=== PATIENT | male | born 1980 | race Caucasian/White ===

== ENCOUNTER 2016-06-29 15:00 | Emergency (ER) ==
[2016-06-29 15:10] VITALS: BP 153/96; TEMP 98.6; BMI 26.5
[2016-06-29] MEDS ORDERED: SODIUM CHLORIDE 1,000 ML IV STA (15:48)
[2016-06-29] MEDS ORDERED: ZOFRAN 4 MG/2 ML IVP STA (15:49)
--- NOTE | 2016-06-29 15:49 | ED.PDOC ---
General ED Provider: Dr. FOUZIA CORTES Chief Complaint: Abdominal Pain Stated Complaint: Right lower abdominal pain; started 2 days ago, Worse today Time Seen by Physician: 15:47 Mode of Arrival: Walk-In Information Source: Patient, Family Exam Limitations: No limitations Nursing and Triage Documentation Reviewed and Agree: Yes Review of Systems - Review Of Systems Constitutional: Reports: No symptoms All Other Systems: Reviewed and Negative Past Medical History - Past Medical History Previously Healthy: Yes Endocrine: Reports: None Cardiovascular: Reports: None Respiratory: Reports: None Hematological: Reports: None Gastrointestinal: Reports: None Genitourinary: Reports: Kidney stones Neuro/Psych: Reports: Anxiety Musculoskeletal: Reports: None Cancer: Reports: None - Surgical History General Surgical History: Reports: None - Family History Family History: Reports: Unknown - Social History Smoking Status: Current every day smoker Hx Substance Use: No Alcohol Screening: None Lives: With family - Immunizations Tetanus Shot up to Date: Yes Physical Exam - Physical Exam Appearance: Well-appearing Eyes: ELLY, EOMI ENT: Ears normal, Nose normal, Oropharynx normal Neck: Supple Respiratory: Airway patent, Breath sounds clear, Respirations nonlabored Cardiovascular: RRR, Pulses normal GI/: Soft, Nontender (States tender to palpation; there is no rebound), No masses, Bowel sounds normal Musculoskeletal: Normal strength, ROM intact Skin: Warm, Dry, Normal color Neurological: Sensation intact, Motor intact Psychiatric: Affect appropriate, Mood appropriate Interpretation - Radiology Interpretation Radiology Interpretation By: Radiologist Radiology Results: Negative Exam Interpreted: CT Scan (Appendix WNL) Critical Care Note - Critical Care Note Total Time (mins): 25 Course - Course Hematology/Chemistry: 06/29/16 15:50 06/29/16 15:50 Orders, Labs, Meds: Lab Review 06/29/16 15:50 WBC 10.65 H RBC 4.68 L Hgb 14.2 Hct 41.0 L MCV 87.6 MCH 30.3 MCHC 34.6 RDW Coeff of Tamanna 12.9 Plt Count 292 Immature Gran % (Auto) 0.4 Neut % (Auto) 53.3 Lymph % (Auto) 37.9 [place] % (Auto) 5.4 Eos % (Auto) 2.3 Baso % (Auto) 0.7 Immature Gran # (Auto) 0.0 Neut # 5.7 Lymph # 4.0 H [place] # 0.6 Eos # 0.3 Baso # 0.1 Sodium 139 Potassium 3.5 Chloride 105 Carbon Dioxide 27 Anion Gap 10.5 BUN 9 Creatinine 0.75 Estimated GFR (MDRD) 118.00 BUN/Creatinine Ratio 12.00 Glucose 107 H Calcium 8.8 Total Bilirubin 0.22 AST 19 ALT 57 Alkaline Phosphatase 130 Total Protein 6.6 Albumin 3.4 Globulin 3.2 Albumin/Globulin Ratio 1.06 Amylase 51 Lipase 16 Orders Category Date Time Status AMYLASE Stat LAB 06/29/16 15:50 Completed CBC W/ AUTO DIFF Stat LAB 06/29/16 15:50 Completed COMPREHENSIVE METABOLIC PANEL Stat LAB 06/29/16 15:50 Completed LIPASE Stat LAB 06/29/16 15:50 Completed Ketorolac Tromethamine [Toradol] MEDS 06/29/16 17:24 Discontinued 60 mg IM ONCE STA Ondansetron HCl/Pf [Zofran 4 mg/2 ml] MEDS 06/29/16 15:49 Discontinued 4 mg IVP ONCE STA Sodium Chloride 0.9% [Sodium Chloride] 1,000 ml MEDS 06/29/16 15:[address] ABDOMEN/PELVIS WO CONTRAST Stat RADS 06/29/16 17:30 Completed Medications Discontinued Medications Generic Name Dose Route Start Last Admin Trade Name Freq PRN Reason Stop Dose Admin Sodium Chloride 1,000 mls @ 1,000 mls/hr 06/29/16 15:48 06/29/16 16:30 Sodium Chloride IV 06/29/16 16:47 1,000 mls/hr BOLUS STA Administration Ketorolac Tromethamine 60 mg 06/29/16 17:24 06/29/16 17:51 Toradol IM 06/29/16 17:25 60 mg ONCE STA Administration Ondansetron HCl 4 mg 06/29/16 15:49 06/29/16 16:28 Zofran 4 Mg/2 Ml IVP 06/29/16 15:50 4 mg ONCE STA Administration Vital Signs: Temp Pulse Resp BP Pulse Ox 06/29/16 15:02 98.6 F 90 20 153/96 H 98 Departure - Departure Time of Disposition: 18:46 Disposition: HOME SELF-CARE Discharge Problem: Abdominal pain Instructions: Abdominal Pain (ED) Condition: Good Pt referred to PMD for follow-up: Yes (call for appointment) Additional Instructions: Tylenol for discomfort; keep well hydrated. If running a fever of 101.5 or above return to ER. Allergies/Adverse Reactions: Allergies No Known Allergies Allergy (Unverified 06/29/16 15:12) Home Medications: Ambulatory Orders Citalopram Hydrobromide [Celexa] 40 mg PO DAILY 06/29/16 Disposition Discussed With: Patient, Family
[2016-06-29 15:58] LABS: BASOPHILS # (AUTO) 0.1 K/uL (0-0.2); BASOPHILS % (AUTO) 0.7 % (0.0-3.0); EOSINOPHILS # (AUTO) 0.3 K/ul (0.0-0.7); EOSINOPHILS % (AUTO) 2.3 % (0.0-7.0); HEMOGLOBIN 14.2 g/dl (14.0-18.0); IMMATURE GRANULOCYTE % (AUTO) 0.4 % (0.0-5.0); LYMPHOCYTES % (AUTO) 37.9 (10.0-50.0); MEAN CORPUSCULAR HEMOGLOBIN 30.3 pg (27.0-31.0); MEAN CORPUSCULAR HGB CONC 34.6 (31.8-35.4); MEAN CORPUSCULAR VOLUME 87.6 fl (80.0-94.0); MONOCYTES # (AUTO) 0.6 K/uL (0.4-2.0); MONOCYTES % (AUTO) 5.4 (0-10); NEUTROPHILS # (AUTO) 5.7 K/ul (2.0-6.9); NEUTROPHILS % (AUTO) 53.3; PLATELET COUNT 292 10^3/uL (140-440); RED BLOOD COUNT 4.68 10^6/ul (4.70-6.10); WHITE BLOOD COUNT 10.65 K/ul (4.2-10.2)
[2016-06-29 16:19] LABS: ALBUMIN 3.4 g/dL (3.4-5.0); ALBUMIN/GLOBULIN RATIO 1.06; ANION GAP 10.5; BILIRUBIN,TOTAL 0.22 mg/dL (0.00-1.20); CALCIUM 8.8 mg/dL (8.2-10.2); CREATININE 0.75 mg/dL (0.60-1.10); POTASSIUM 3.5 mmol/L (3.5-5.1); TOTAL PROTEIN 6.6 g/dL (6.4-8.2)
[2016-06-29] MEDS ORDERED: TORADOL IM STA (17:24)
--- NOTE | 2016-06-29 18:19 | CT ---
EXAM: CT scan of the abdomen and pelvis without contrast HISTORY: Right lower quadrant pain TECHNIQUE: Imaging of the abdomen and pelvis was performed without contrast. 3 mm thin axial image s and coronal and sagittal reconstructions were provided for interpretation. Comparison none. FINDINGS: The liver, spleen, pancreas, adrenal glands and kidneys appear normal. The proximal uret ers are normal size. The small and large bowel loops are normal in caliber. There has been previou s cholecystectomy. There is no free air. The appendix appears normal. The helical images obtained through the pelvis demonstrate a normal appearance of the rectum, urinar y bladder. There is no free fluid seen within the pelvis. No retroperitoneal abnormalities are see n. No acute abnormalities are seen within the anterior abdominal wall. Lung bases are clear. No l ytic or blastic lesions are seen within the osseous structures. IMPRESSION: There is no bowel obstruction or acute inflammatory changes seen within the abdomen and pelvis. There is no ureteral obstruction. There has been previous cholecystectomy.
== END 2016-06-29 18:52 | disposition home or self-care (01) ==
LOC: ED 15:00
DX: R10.31 Right lower quadrant pain (principal); Z87.442 Personal history of urinary calculi; F17.210 Nicotine dependence, cigarettes, uncomplicated
CPT/HCPCS: 36415; 80053; 82150; 83690; 85025; 96361; 96374; 96375; 99283